=== PATIENT | female | born 1955 | race Native Hawaiian/Other Pacific Islander ===

== ENCOUNTER 2019-08-07 14:19 | Outpatient (CLI) | payer OTHER, BC ==
[~2019-08-07 14:19] MED LIST: ASA LO-DOSE81 MG OR; HYZAAR1 TA1 PO; PANT40TA PO
[2019-08-07 14:56] LABS: PLATELET COUNT 129 K/uL (152-353)
[2019-08-07 15:06] LABS: POTASSIUM 3.5 mmol/L (3.6-5.2)
== END 2019-08-07 22:10 | disposition home or self-care (01) ==
LOC: LAB 14:19
PROVIDERS: Internal Medicine
DX: I10 Essential (primary) hypertension (principal)
CPT/HCPCS: 80053; 80061; 81000; 84439; 84443; 85027

== ENCOUNTER 2019-08-28 10:00 | Outpatient (CLI) | payer OTHER, BC ==
[2019-08-28 12:34] LABS: POTASSIUM 3.4 mmol/L (3.6-5.2)
== END 2019-08-28 19:03 | disposition home or self-care (01) ==
LOC: LABW 10:00
PROVIDERS: Internal Medicine
DX: R73.9 Hyperglycemia, unspecified (principal)
CPT/HCPCS: 36415; 80053; 83036

== ENCOUNTER 2021-07-30 13:55 | Outpatient (CLI) | payer BC | END 2021-07-30 19:22 | disposition home or self-care (01) | LOC: MRI 13:55 | PROVIDERS: ATTEND Internal Medicine | DX: H49.21 Sixth [abducent] nerve palsy, right eye (principal) | CPT/HCPCS: 36415; 82565; 84520; A9576 ==

== ENCOUNTER 2021-08-13 09:54 | Outpatient (CLI) | payer BC | END 2021-08-13 19:59 | disposition home or self-care (01) | LOC: LABW 09:54 | PROVIDERS: ATTEND Psychiatry & Neurology Neurology | DX: H49.21 Sixth [abducent] nerve palsy, right eye (principal) | CPT/HCPCS: 36415; 82085; 82550; 84439; 84443; 85652; 86038; 86140 ==

== ENCOUNTER 2021-08-19 14:02 | Outpatient (CLI) | payer BC | END 2021-08-19 19:08 | disposition home or self-care (01) | LOC: MRI 14:02 | PROVIDERS: ATTEND Internal Medicine | DX: H49.21 Sixth [abducent] nerve palsy, right eye (principal) ==

== ENCOUNTER 2022-03-17 10:18 | Outpatient (CLI) | payer BC ==
[2022-03-17 11:05] LABS: PLATELET COUNT 127 K/uL (152-353)
[2022-03-17 11:29] LABS: POTASSIUM 3.3 mmol/L (3.6-5.2)
== END 2022-03-17 20:41 | disposition home or self-care (01) ==
LOC: LABW 10:18
PROVIDERS: ATTEND Internal Medicine
DX: I10 Essential (primary) hypertension (principal)
CPT/HCPCS: 36415; 80053; 85027